=== PATIENT | female | born 1995 | race Caucasian/White ===

== ENCOUNTER → 2018-03-12 10:52 | Outpatient (CLI) | payer BC, SELFPAY ==
[2018-03-12 12:13] LABS: Cholesterol 159 mg/dL (140-199); HDL Cholesterol 73 mg/dL (40-60); LDL Cholesterol Calculated 72 mg/dL (<100); Triglycerides 68 mg/dL (35-150)
== END ==
PROVIDERS: PCP Family Medicine; Visit Provider Family Medicine
DX: Z82.3 Family history of stroke (principal)
CPT/HCPCS: 36415; 80061

== ENCOUNTER → 2019-07-18 13:28 | Outpatient (CLI) | payer BC, SELFPAY ==
[2019-07-18 20:24] LABS: Urine N gonorrhoeae NOT DETECTED
[2019-07-18 20:43] LABS: Urine Chlamydia NOT DETECTED
== END ==
PROVIDERS: Family Provider Family Medicine; PCP Family Medicine; Visit Provider Family Medicine
DX: Z11.3 Encounter for screening for infections with a predominantly sexual mode of transmission (principal)
CPT/HCPCS: 87491; 87591

== ENCOUNTER → 2020-03-10 15:09 | Outpatient (CLI) | payer BC, SELFPAY ==
[2020-03-10 18:57] LABS: RBC Urine None Seen (0-5/HPF)
[2020-03-10 19:14] LABS: Appearance Urine UA CLEAR; Bilirubin Urine UA NEGATIVE (NEGATIVE); Color Urine UA YELLOW; Glucose Urine UA NEGATIVE (Negative); Ketones Urine UA NEGATIVE (NEGATIVE); Leukocyte Esterase Urine UA TRACE (NEGATIVE); Nitrite Urine UA NEGATIVE (Negative); Occult Blood Urine UA NEGATIVE (Negative); Protein Urine UA NEGATIVE (Negative); Specific Gravity Urine UA 1.015 (1.000-1.035); Urobilinogen Urine UA 0.2 E.U./dL (0.2)
[2020-03-10 19:19] LABS: pH Urine UA 7.5 (4.5-8.0)
[2020-03-10 19:29] LABS: Amorphous Sediment Urine 1+; Bacteria Urine Many (>30); Culture Indicated Urine Specimen Cultured; Squamous Epithelial Cell Urine 0-1 /HPF (0-5/HPF); WBC Urine 30-100/HPF (0-5/HPF)
== END ==
PROVIDERS: Family Provider Family Medicine; PCP Family Medicine; Visit Provider Nurse Practitioner Family
DX: R30.0 Dysuria (principal)
CPT/HCPCS: 81001; 87077; 87086

== ENCOUNTER → 2023-04-02 15:09 | Outpatient (CLI) | payer OTHER, SELFPAY ==
[2023-04-02 17:43] LABS: Free T4, Direct Thyroxine 0.84 ng/dL (0.78-2.19)
[2023-04-02 17:57] LABS: Thyroid Stimulating Hormone 0.572 uIU/mL (0.47-4.68)
[2023-04-03 08:48] LABS: Triiodothyronine T3 Total 173 ng/dL (71-180)
[2023-04-03 18:15] LABS: Anti Thyroglobulin Antibody <1.0 IU/mL (0.0-0.9); Thyroid Peroxidase Antibodies <9 IU/mL (0-34)
== END ==
PROVIDERS: Family Provider Family Medicine; PCP Family Medicine; Referring Provider Family Medicine; Visit Provider Family Medicine
DX: E04.9 Nontoxic goiter, unspecified (principal)
CPT/HCPCS: 36415; 84439; 84443; 84480; 86376; 86800

== ENCOUNTER → 2023-04-27 12:25 | Outpatient (CLI) | payer OTHER, SELFPAY ==
--- NOTE | 2023-04-27 | PATH_ITS ---
Note [facility] Accession Number: [id number] TESTS RESULT FLAG UNITS REF RANGE LAB Clinician Provided Cytology Information No. of containers..02 Previously Prepared Cytology Slide 35 Unknown Storage/container code(s) Source: INFERIOR LEFT THYROI DIAGNOSIS: INFERIOR LEFT THYROI INCONCLUSIVE. [place] CATEGORY III. ATYPIA OF UNDETERMINED SIGNIFICANCE. CELLS WITH HURTHLE-OID FEATURES PRESENT, RARE CELLS WITH CYTOLOGIC ATYPIA, POSSIBLY CONSISTENT WITH MULTINODULAR GOITER. MOLECULAR STUDIES REQUESTED; RESULTS WILL BE REPORTED AN ADDENDUM. Pathologist ICD10: 01 R89.6, E04.2 Signed out by: Aide Valle MD, Pathologist NPI- [id number] Performed by: Dario Armenta, [employer] ([facility]) Gross description: 30 CC, PINK, CLEAR RECIEVED: IN CYTOLYT WITH 6 ALCOHOL FIXED AND 6 QUICK STAINED SLIDES ALSO 1 RNA VIAL WAS RECEIVED.VO /VDU 04/30/2023 0758 Local FLAG LEGEND: L-Low Normal,H-High Normal,LL-Alert Low,HH-Alert High <-Panic Low,>-Panic High,A-Abnormal,AA-Critical Abnormal Performed at: 01 =Z [facility] [address], [place] [address] Jose Manuel Brown MD, Performed at: 01 [facility] [address] [place] [address] [address], [place], [place] [id number] MD Jose Manuel Brown MD Phone: [phone]
--- NOTE | 2023-04-27 12:26 | DI.US.S_ITS ---
PROCEDURE: US FINE NEEDLE ASPIRATION INDICATIONS: INFERIOR LEFT THYROID NODULE TECHNIQUE: The indications, alternatives, benefits, risks, and complications of the procedure were explained to the patient. Written informed consent was obtained and placed in the chart. The area of interest was examined sonographically and a site was chosen for ultrasound guided percutaneous sampling. The skin was prepared and draped in the usual fashion, and anesthetized with 1% lidocaine infiltrated from the skin down to the lesion. Multiple passes were then performed, with contents emptied into an appropriate pathology specimen container. A bandage was applied to the area of access at completion of the study. COMPARISON: Outside Facility, RG, US THYROID, 04/11/2023, 13:32. FINDINGS: Location(s) of lesion(s) sampled: Inferior left thyroid [place]: 25 gauge hypodermic needles. Number of passes: 6 Medications: 1% lidocaine for local anaesthesia. Complications: None. IMPRESSION: Successful ultrasound-guided left thyroid nodule fine needle aspiration, with cytology results pending. Approved by: Rudolph Adamson M.D. on 04/27/2023 at 14:37
== END ==
PROVIDERS: Family Provider Family Medicine; PCP Family Medicine; Referring Provider Family Medicine; Visit Provider Family Medicine
DX: E04.2 Nontoxic multinodular goiter (principal)
CPT/HCPCS: 10005

== ENCOUNTER → 2024-02-29 10:10 | Outpatient (CLI) | payer OTHER, SELFPAY ==
[2024-02-29 11:32] LABS: Appearance Urine UA CLEAR; Bilirubin Urine UA NEGATIVE (NEGATIVE); Color Urine UA YELLOW; Glucose Urine UA NEGATIVE (Negative); Ketones Urine UA NEGATIVE (NEGATIVE); Leukocyte Esterase Urine UA NEGATIVE (NEGATIVE); Nitrite Urine UA NEGATIVE (Negative); Occult Blood Urine UA NEGATIVE (Negative); Protein Urine UA NEGATIVE (Negative); Urobilinogen Urine UA 0.2 E.U./dL (0.2)
[2024-02-29 11:42] LABS: Bacteria Urine Moderate (10-30); Culture Indicated Urine Specimen Cultured; RBC Urine None Seen (0-5/HPF); Squamous Epithelial Cell Urine 1-5 /HPF (0-5/HPF); Urine Volume 10mL (spun); WBC Urine None Seen (0-5/HPF)
== END ==
PROVIDERS: Family Provider Family Medicine; PCP Student in an Organized Health Care Education/Training Program; Referring Provider Obstetrics & Gynecology; Visit Provider Obstetrics & Gynecology
DX: R35.0 Frequency of micturition (principal)
CPT/HCPCS: 81001; 87086

== ENCOUNTER → 2024-04-07 08:34 | Outpatient (CLI) | payer OTHER, SELFPAY ==
[2024-04-07 10:03] LABS: Natera Collection Specimen Collected
[2024-04-07 10:11] LABS: Add Manual Diff / Slide Review NO; Basophils Absolute Auto 0 /uL (0-100); Basophils Percent Auto 0.5 % (0-2); Eosinophils Absolute Auto 100 /uL (0-450); Eosinophils Percent Auto 1.1 % (2-4); Hematocrit 36.3 % (36-46); Hemoglobin 12.8 g/dL (12.0-16.0); Lymphocytes Absolute Auto 1900 /uL (1100-4500); Lymphocytes Percent Auto 29.3 % (25-40); Mean Corpuscular HGB Conc 35.2 % (30-36); Mean Corpuscular Hemoglobin 28.7 PG (26-34); Mean Corpuscular Volume 81.6 fL (80-100); Monocytes Absolute Auto 500 /uL (0-900); Neutrophils Absolute Auto 4000 /uL (1500-7000); Neutrophils Percent Auto 62.1 % (50-75); Platelet Count 316 X10^3/uL (150-400); Red Blood Cell Count 4.45 X10^6/uL (4.0-5.2); Red Cell Distribution Width 13.6 % (11.6-14.8); White Blood Cell Count 6.4 X10^3/uL (4.5-11.0)
[2024-04-07 10:54] LABS: Free T4, Direct Thyroxine 0.81 ng/dL (0.78-2.19)
[2024-04-07 11:08] LABS: Thyroid Stimulating Hormone 0.196 uIU/mL (0.47-4.68)
[2024-04-07 15:09] LABS: Urine Chlamydia NOT DETECTED; Urine N gonorrhoeae NOT DETECTED
[2024-04-07 16:24] LABS: Hepatitis B Surface Antigen NEGATIVE s/c (NEGATIVE); Rubella Antibody IgG 10.9 IU/mL (>15)
[2024-04-07 16:29] LABS: HIV 1 & 2 Ab/Ag 4th Gen Combo NEGATIVE (NEGATIVE); Hep C Virus Ab w/Reflex Quant NEGATIVE s/c (NEGATIVE)
[2024-04-08 04:36] LABS: RPR Screen Non Reactive (Non Reactive)
[2024-04-08 12:10] LABS: Varicella IgG Antibody 205 index (Immune >165)
== END ==
PROVIDERS: Family Provider Family Medicine; PCP Student in an Organized Health Care Education/Training Program; Referring Provider Obstetrics & Gynecology; Visit Provider Obstetrics & Gynecology
DX: Z34.01 Encounter for supervision of normal first pregnancy, first trimester (principal); E04.1 Nontoxic single thyroid nodule; Z3A.10 10 weeks gestation of pregnancy; Z11.3 Encounter for screening for infections with a predominantly sexual mode of transmission; Z3A.08 8 weeks gestation of pregnancy
CPT/HCPCS: 36415; 80055; 84439; 84443; 86787; 86803; 86850; 86900; 86901; 87086; 87389; 87491; 87591

== ENCOUNTER → 2024-05-23 06:51 | Outpatient (CLI) | payer OTHER, SELFPAY ==
[2024-05-27 21:12] LABS: AFP Value 20.9 ng/mL (.); Gest Age on Col Date 16.6 weeks (.); Gestational Age Ultrasound (.); Insulin Dep Diabetes No (.); OSBR Risk 1IN 10000 (.); Results Report (.); Test Results *Screen Negative* (.)
== END ==
PROVIDERS: Family Provider Family Medicine; PCP Student in an Organized Health Care Education/Training Program; Referring Provider Obstetrics & Gynecology; Visit Provider Obstetrics & Gynecology
DX: Z34.02 Encounter for supervision of normal first pregnancy, second trimester (principal); Z3A.16 16 weeks gestation of pregnancy
CPT/HCPCS: 36415; 82105

== ENCOUNTER → 2024-06-18 06:51 | Outpatient (CLI) | payer OTHER, SELFPAY ==
--- NOTE | 2024-06-18 06:52 | DI.US.S_ITS ---
PROCEDURE: US OB >= 14 WEEKS FETUS INDICATIONS: 20 week anatomy OUTSIDE/PRIOR DATING DATA: Last menstrual period (LMP): 01/28/2024. LMP-based estimated date of delivery (DENISE): 11/13/2024. First dating scan (date and location): 03/26/2024. Estimated date of delivery (DEINSE) from first dating scan: 11/01/2024. The calculations are made using the clinical DENISE of 11/13/2024. TECHNIQUE: Real-time scanning was performed of the fetus, with image documentation and biometric measurements. COMPARISON: [facility], , OB <= 14 WEEKS FETUS, 03/26/2024, 15:10. FINDINGS: General: A single living intrauterine gestation is present. Presentation: Vertex. Placenta: Placental position is posterior , without previa. Amniotic fluid index: 17 cm, normal range is 5-24 cm. Single deepest vertical pocket is 5.8 cm. heart rate: 145 beats per minute. Maternal cervical canal: 3.5 cm long. Normal lower limit is 2.5 cm. biometrics: Biparietal diameter: 5.0 cm 21 weeks 1 day Head circumference: 18.8 cm 21 weeks 0 days Abdominal circumference: 16.2 cm 21 weeks 2 days Femur length: 3.4 cm 20 weeks 5 days Clinically estimated gestational age: 20 weeks 2 days Composite gestational age from present scan: 21 weeks 0 days Estimated weight and percentile: 393 g, 84th percentile Anatomic survey: Neuro: Ventricles are non-dilated at less than 10 mm. Cisterna magna is normal at 3-11 mm. Cerebellum is normal in size and morphology. Nuchal skin fold: Normal at less than 6 mm between 14-21 weeks gestational age. Face: Nose and lips, facial profile are normal. Spine: No evidence for spina bifida. Heart: 4-chambered heart is present, with normal ventricular outflow tracts. Diaphragm: Diaphragm is intact. Stomach: Left-sided stomach is present. Kidneys: No hydronephrosis. Normal is less than 5 mm in 2nd trimester, less than 7 mm in 3rd trimester. Cord: 3-vessel cord has orthotopic insertion. Bladder: Normal in size. Extremities: All 4 extremities identified. IMPRESSION: Single live intrauterine with gestational age today of 21 weeks 0 days. Anatomy is within normal limits. We strive to produce accurate, complete, and clear reports of imaging services. To assist us in improving patient care, this report was composed using standard report templates and voice recognition software. Therefore, it may contain abnormal punctuation, insertions and/or omissions. Occasional wrong-word or sound-alike substitutions may occur. Though we review the report and make efforts to correct it, we do recommend that the report be read carefully in proper context to recognize any text inaccuracies. Dictated by: Ana Lilia Harris M.D. on 06/18/2024 at 16:19 Approved by: Ana Lilia Harris M.D. on 06/18/2024 at 16:21
== END ==
LOC: US 06:51
PROVIDERS: Family Provider Family Medicine; PCP Student in an Organized Health Care Education/Training Program; Referring Provider Obstetrics & Gynecology; Visit Provider Obstetrics & Gynecology
DX: Z34.02 Encounter for supervision of normal first pregnancy, second trimester (principal); Z3A.21 21 weeks gestation of pregnancy
CPT/HCPCS: 76811

== ENCOUNTER 2024-06-21 13:13 | Emergency (ER) | payer OTHER, SELFPAY ==
[2024-06-21 13:15] VITALS: BP 122/73; PULSE 87; RESP 16; TEMP 36.6; O2SAT 97; BMI 34.5
[2024-06-21 13:30] VITALS: PULSE 87; O2SAT 97
--- NOTE | 2024-06-21 13:33 | EKG_ITS ---
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
--- NOTE | 2024-06-21 13:44 | ED_ITS ---
HPI - Arrhythmia/Palpitations General Chief Complaint: Arrhythmia/Palpitations Stated Complaint: migraine t-3, palpitations Time Seen by Provider: 06/21/24 13:28 Source: patient Mode of arrival: Ambulatory History of Present Illness HPI narrative: Patient is an otherwise healthy 29-year-old female he was a at approximately 20 weeks EGA he was here for evaluation of 3 days of a migraine headache and palpitations. She has a history of migraines. She normally would take Excedrin for her migraines which would help the symptoms however since she was she has only been taking Tylenol. Her last dose of Tylenol was earlier today. No fevers. States this feels like her prior headaches. Since the start of her she has had palpitations. They have been increasing over the past week or so and then significantly increased over the past 24 hours. Describes the palpitations as sudden onset. Lasting for seconds. No other associated symptoms to include lightheadedness or shortness of breath or chest pain. She contacted her OB provider who stated that this potentially could be normal in although the patient has had low iron in the past. She comes in the emergency department for her headache but mainly because of the palpitations. Related Data Home Medications Medication Instructions Recorded Confirmed vitamin-ferrous sulfate tab PO 03/10/24 06/18/24 27 mg iron-folic acid 0.8 mg tablet Previous Rx's Medication Instructions Recorded ondansetron 4 mg disintegrating 4 mg PO Q6H PRN for 05/07/24 tablet nausea/vomiting #20 tabs Allergies Allergy/AdvReac Type Severity Reaction Status Date / Time Penicillins Allergy Intermediate Rash Verified 06/21/24 13:27 Review of Systems Review of Systems ROS Unobtainable: All systems reviewed & are unremarkable except as noted in HPI and below Patient History Medical History Allergies (~2015) Environmental allergies Migraine without aura (~2021) Thyroid nodule (~2022) Simple physiological cyst of ovary (~2022) Surgical History (Updated 04/14/24 @ 20:59 by Brigida Skelton) Anesthesia Status post fine needle biopsy [place] teeth extracted (~2014) History of nasal septoplasty (~2018) Family History (Updated 03/10/24 @ 09:14 by Shoshana Deleon RN) Father Stroke PFO (patent foramen ovale) Grandfather Lung cancer Smoker Grandmother Non-Hodgkin lymphoma Social History marital status: number of children: 0 household members: spouse lives independently: Yes caregiver/support person: No housing: house pets and animals: Yes (cat and 2 dogs; manages litter box) education level: college occupational status: employed 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 travel history: over 6 months ago seatbelt use: always helmet use: Yes water heater temp set < 120 deg: Yes working smoke detector in home: Yes fire extinguisher in home: Yes carbon monox detector in home: Yes firearms in home: No do you feel safe at home: Yes Smoking Status: Never smoker second hand exposure: No alcohol intake: former substance use type: does not use during the past year weight has: increased > 10 lbs well-balanced diet: daily or most days daily servings fruits/ve-4 caffeine: Yes (AM cup coffee, stopped since becoming ) Type(s) of exercise: walking and other additional social history: Currently attending the (2018). Will be in final year this year. 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 Smoking Status: Never smoker Substance Use Type: does not use Exam Initial Vital Signs Initial Vital Signs: Vital Signs Temperature 97.8 F 06/21/24 13:15 Pulse Rate 87 06/21/24 13:15 Respiratory Rate 16 06/21/24 13:15 Blood Pressure 122/73 06/21/24 13:15 Pulse Oximetry 97 06/21/24 13:15 Oxygen Delivery Method Room Air 06/21/24 13:15 Const General: cooperative, comfortable and No ill appearing HENMT Head: normal to inspection Resp Effort & Inspection: normal respiratory effort Cardio Rate: regular rate GI Inspection: normal to inspection Skin General: no rashes or lesions noted Neuro General: patient alert, patient awake and moves all extremities Course Orders Ordered: ED Orders 06/21/24 13:29 EKG-12 Lead Stat 06/21/24 13:45 Basic Metabolic Panel Stat Complete Blood Count AUTO DIFF Stat Discontinued Medications Sodium Chloride (Normal Saline 0.9%) 1,000 mls @ 1,000 mls/hr IV BOLUS ONE Stop: 06/21/24 14:44 Last Admin: 06/21/24 14:09 Dose: 1,000 mls/hr Acetaminophen (Ofirmev) 1,000 mg in 100 mls @ 400 mls/hr IV NOW ONE Stop: 06/21/24 14:15 Last Infusion: 06/21/24 14:39 Dose: Infused Vital Signs Vital signs: Vital Signs - 8 hr 06/21/24 13:15 06/21/24 13:30 06/21/24 14:01 Temperature 97.8 F Pulse Rate 87 87 83 Respiratory Rate 16 Blood Pressure 122/73 Pulse Oximetry 97 97 99 Oxygen Delivery Method Room Air 06/21/24 14:02 06/21/24 14:02 06/21/24 14:30 Temperature Pulse Rate 78 80 Respiratory Rate 22 21 Blood Pressure 117/60 Pulse Oximetry 98 97 Oxygen Delivery Method Room Air Room Air 06/21/24 14:30 Temperature Pulse Rate Respiratory Rate Blood Pressure 110/54 L Pulse Oximetry Oxygen Delivery Method MDM - Arrhythmia/Palpitations Lab Data 06/21/24 14:03 06/21/24 14:03 Labs: Lab Results 06/21/24 Range/Units 14:03 WBC 10.8 (4.5-11.0) X10^3/uL RBC 4.32 (4.0-5.2) X10^6/uL Hgb 12.3 (12.0-16.0) g/dL Hct 35.2 L (36-46) % MCV 81.5 (80-100) fL MCH 28.4 (26-34) PG MCHC 34.8 (30-36) % RDW 13.7 (11.6-14.8) % Plt Count 338 (150-400) X10^3/uL Neut % (Auto) 72.8 (50-75) % Lymph % (Auto) 19.4 L (25-40) % [place] % (Auto) 6.3 (3-14) % Eos % (Auto) 1.1 L (2-4) % Baso % (Auto) 0.4 (0-2) % Neut # (Auto) 7900 H (5476-8965) /uL Lymph # (Auto) 2100 (4421-5729) /uL [place] # (Auto) 700 (0-900) /uL Eos # (Auto) 100 (0-450) /uL Baso # (Auto) 0 (0-100) /uL Sodium 134 L (137-145) mmol/L Potassium 3.9 (3.4-5.1) mmol/L Chloride 105 (98-107) mmol/L Carbon Dioxide 24 (22-32) mmol/L BUN 9 (7-17) mg/dL Creatinine 0.59 (0.52-1.04) mg/dL Estimated GFR > 60 (>60) mL/min BUN/Creatinine Ratio 15.3 (6-22) Glucose 92 (70-100) mg/dL Calcium 8.8 (8.4-10.2) mg/dL ECG Data Attestation: I personally reviewed and interpreted this ECG as follows: Interpretation: Sinus rhythm Ventricular rate 82 [place] Normal QRS Normal QTC No ST T wave changes MDM Narrative Medical decision making narrative: She was having PACs that are consistent with the symptoms that she was having. Her labs unremarkable. Offered treatment for her headache however she stated she would just rather take Tylenol. After IV Tylenol and fluids she states her headache has improved. She was not having chest pain or shortness of breath. Plan will be to have her follow-up with her OB provider for a follow-up. She was given return precautions. She expressed understanding and agreement with plan. Discharge Plan Departure Patient Disposition: Home Clinical Impression: Palpitations, Headache Instructions: DI for Palpitations Activity Restrictions/Additional Instructions: Your labs today are unremarkable. You are having frequent premature atrial contractions. Recommend that you contact your OB provider for follow-up to discuss any potential medications. Return to the emergency department for new symptoms. Prescriptions: No Action ondansetron 4 mg tablet,disintegrating 4 mg PO Q6H PRN (Reason: for nausea/vomiting) Qty: 20 2RF vit-ferrous sulfat-FA 27 mg iron- 0.8 mg tablet PO Referrals: Heena Jacobsen DO [Primary Care Provider] - Stand Alone Forms: Patient Portal/API
[2024-06-21 14:01] VITALS: PULSE 83; O2SAT 99
[2024-06-21 14:02] VITALS: BP 117/60; PULSE 78; RESP 22; O2SAT 98
[2024-06-21] MEDS: ACETAMINOPHEN IV 1,000 MG/100 ML VIAL 400 MG IV (14:09)
[2024-06-21] MEDS: SODIUM CHLORIDE 0.9% 1,000 ML 1000 ML IV (14:09)
[2024-06-21 14:11] LABS: Add Manual Diff / Slide Review NO; Basophils Absolute Auto 0 /uL (0-100); Basophils Percent Auto 0.4 % (0-2); Eosinophils Absolute Auto 100 /uL (0-450); Eosinophils Percent Auto 1.1 % (2-4); Hematocrit 35.2 % (36-46); Hemoglobin 12.3 g/dL (12.0-16.0); Lymphocytes Absolute Auto 2100 /uL (1100-4500); Lymphocytes Percent Auto 19.4 % (25-40); Mean Corpuscular HGB Conc 34.8 % (30-36); Mean Corpuscular Hemoglobin 28.4 PG (26-34); Mean Corpuscular Volume 81.5 fL (80-100); Monocytes Absolute Auto 700 /uL (0-900); Monocytes Percent Auto 6.3 % (3-14); Neutrophils Absolute Auto 7900 /uL (1500-7000); Neutrophils Percent Auto 72.8 % (50-75); Platelet Count 338 X10^3/uL (150-400); Red Blood Cell Count 4.32 X10^6/uL (4.0-5.2); Red Cell Distribution Width 13.7 % (11.6-14.8); White Blood Cell Count 10.8 X10^3/uL (4.5-11.0)
[2024-06-21 14:28] LABS: BUN Creatinine Ratio 15.3 (6-22); Blood Urea Nitrogen 9 mg/dL (7-17); Calcium 8.8 mg/dL (8.4-10.2); Carbon Dioxide 24 mmol/L (22-32); Chloride 105 mmol/L (98-107); Estimated Glomerular Filt Rate > 60 mL/min (>60); Glucose 92 mg/dL (70-100); HEMOLYSIS < 15 (0-50); Potassium 3.9 mmol/L (3.4-5.1); Sodium 134 mmol/L (137-145)
[2024-06-21 14:30] VITALS: BP 110/54; PULSE 80; RESP 21; O2SAT 97
== END 2024-06-21 15:03 | disposition home or self-care (01) ==
PROVIDERS: Emergency Provider Emergency Medicine; Family Provider Family Medicine; PCP Student in an Organized Health Care Education/Training Program
DX: R00.2 Palpitations (principal); R51.9 Headache, unspecified; Z3A.20 20 weeks gestation of pregnancy
CPT/HCPCS: 36415; 80048; 85025; 93005; 96365; 99284; J0136

== ENCOUNTER → 2024-06-30 13:38 | Outpatient (CLI) | payer OTHER, SELFPAY | LOC: CAR 13:39 | PROVIDERS: Family Provider Family Medicine; PCP Student in an Organized Health Care Education/Training Program; Referring Provider Obstetrics & Gynecology; Visit Provider Obstetrics & Gynecology | DX: Z34.90 Encounter for supervision of normal pregnancy, unspecified, unspecified trimester (principal); R00.2 Palpitations | CPT/HCPCS: 93242 ==

== ENCOUNTER → 2024-07-25 08:33 | Outpatient (CLI) | payer OTHER, SELFPAY ==
[2024-07-25 10:29] LABS: Hematocrit 34.8 % (36-46); Hemoglobin 11.9 g/dL (12.0-16.0)
[2024-07-25 10:30] LABS: GTT (PREG) 1 Hour PP 50gm Dose 171 mg/dL (76-139); HEMOLYSIS < 15 (0-50); Iron 42 ug/dL (37-170)
[2024-07-25 10:40] LABS: Percent Iron Saturation 9 % (15-50); Total Iron Binding Capacity 473 ug/dL (265-497); Transferrin 389 mg/dL (206-381)
== END ==
PROVIDERS: Family Provider Family Medicine; PCP Student in an Organized Health Care Education/Training Program; Referring Provider Obstetrics & Gynecology; Visit Provider Obstetrics & Gynecology
DX: Z34.02 Encounter for supervision of normal first pregnancy, second trimester (principal); R51.9 Headache, unspecified; Z3A.26 26 weeks gestation of pregnancy
CPT/HCPCS: 36415; 82950; 83540; 83550; 85014; 85018

== ENCOUNTER → 2024-07-28 07:59 | Outpatient (CLI) | payer OTHER, SELFPAY ==
[2024-07-28 09:37] LABS: Glucose Fasting Gestational 89 mg/dL (76-95)
[2024-07-28 10:49] LABS: Glucose 1 Hour Gest 187 mg/dL (76-180)
[2024-07-28 11:34] LABS: Glucose Tol Interp,Gestational INTERPRETATION
[2024-07-28 12:20] LABS: Glucose 2 Hour Gest 136 mg/dL (76-155)
[2024-07-28 12:34] LABS: Glucose 3 Hour Gest 78 mg/dL (76-140)
== END ==
PROVIDERS: Family Provider Family Medicine; PCP Student in an Organized Health Care Education/Training Program; Referring Provider Specialist; Visit Provider Specialist
DX: Z34.90 Encounter for supervision of normal pregnancy, unspecified, unspecified trimester (principal); R73.09 Other abnormal glucose
CPT/HCPCS: 36415; 82951; 82952

== ENCOUNTER → 2024-08-13 10:38 | Outpatient (CLI) | payer OTHER, SELFPAY | PROVIDERS: Family Provider Family Medicine; PCP Student in an Organized Health Care Education/Training Program; Visit Provider Obstetrics & Gynecology | DX: N39.0 Urinary tract infection, site not specified (principal); R82.998 Other abnormal findings in urine | CPT/HCPCS: 87086 ==

== ENCOUNTER 2024-09-18 10:05 | Outpatient (CLI) | payer OTHER, SELFPAY | END 2024-09-18 12:22 | disposition home or self-care (01) | LOC: LABOR 10:27 → OB 09-23 08:31 | PROVIDERS: Family Provider Family Medicine; PCP Student in an Organized Health Care Education/Training Program; Referring Provider Obstetrics & Gynecology; Visit Provider Obstetrics & Gynecology | DX: O60.03 Preterm labor without delivery, third trimester (principal); O13.3 Gestational [pregnancy-induced] hypertension without significant proteinuria, third trimester; Z3A.33 33 weeks gestation of pregnancy | CPT/HCPCS: 59025; G0378; G0379 ==

== ENCOUNTER 2024-09-20 13:14 | Outpatient (CLI) | payer OTHER, SELFPAY ==
[2024-09-20 14:16] LABS: Appearance Urine UA CLEAR; Bilirubin Urine UA NEGATIVE (NEGATIVE); Color Urine UA YELLOW; Glucose Urine UA NEGATIVE (Negative); Ketones Urine UA NEGATIVE (NEGATIVE); Leukocyte Esterase Urine UA 1+ (NEGATIVE); Nitrite Urine UA NEGATIVE (Negative); Occult Blood Urine UA NEGATIVE (Negative); Protein Urine UA NEGATIVE (Negative); Urobilinogen Urine UA 0.2 E.U./dL (0.2)
[2024-09-20 14:23] LABS: Urine Volume 10mL (spun)
[2024-09-20 14:24] LABS: Bacteria Urine Many (>30); Culture Indicated Urine Specimen Cultured; RBC Urine None Seen (0-5/HPF); Squamous Epithelial Cell Urine 1-5 /HPF (0-5/HPF); WBC Urine 1-5/HPF (0-5/HPF)
[2024-09-20] MEDS: hydrOXYzine HCL 25 MG TABLET PO (14:24)
--- NOTE | 2024-09-20 14:33 | P.TNLD_ITS ---
Visit Information Visit Information Date of evaluation: 09/20/24 Primary OB Provider: Kasey Cochran On-call OB Provider: Stephanie Lopez Reason for Evaluation: Yes other Comments/Additional reasons for admission: This is a 29 yo G1 now 33w5d here with increased urinary leaking. She has hx of leaking this but seems worse over past few days. No bleeding, no change in discharge, no vaginal discomfort. She does have mild cramping. [facility] Medical History Allergies (~2015) Environmental allergies Migraine without aura (~2021) Thyroid nodule (~2022) Simple physiological cyst of ovary (~2022) Surgical History (Updated 04/14/24 @ 20:59 by Brigida Skelton) Anesthesia Status post fine needle biopsy [place] teeth extracted (~2014) History of nasal septoplasty (~2018) Family History (Updated 03/10/24 @ 09:14 by Shoshana Deleon RN) Father Stroke PFO (patent foramen ovale) Grandfather Lung cancer Smoker Grandmother Non-Hodgkin lymphoma Social History marital status: number of children: 0 household members: spouse lives independently: Yes caregiver/support person: No housing: house pets and animals: Yes (cat and 2 dogs; manages litter box) education level: college occupational status: employed 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 travel history: over 6 months ago seatbelt use: always helmet use: Yes water heater temp set < 120 deg: Yes working smoke detector in home: Yes fire extinguisher in home: Yes carbon monox detector in home: Yes firearms in home: No do you feel safe at home: Yes Smoking Status: Never smoker second hand exposure: No alcohol intake: former substance use type: does not use during the past year weight has: increased > 10 lbs well-balanced diet: daily or most days daily servings fruits/ve-4 caffeine: Yes (AM cup coffee, stopped since becoming ) Type(s) of exercise: walking and other additional social history: Currently attending the (2018). Will be in final year this year. 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 Objective Labs Labs: Laboratory Results - last 24 hr 09/20/24 14:05 Urine Color Yellow Urine Appearance Clear Urine pH 6.0 Ur Specific [place] 1.010 Urine Protein Negative Urine Glucose (UA) Negative Urine Ketones Negative Urine Occult Blood Negative Urine Nitrate Negative Urine Bilirubin Negative Urine Urobilinogen 0.2 Ur Leukocyte Esterase 1+ H Urine RBC None seen Urine WBC 1-5/hpf Ur Squamous Epith Cells 1-5 /hpf Urine Bacteria Many (>30) H Urine Yeast 0-1/hpf Ur Culture Indicated? Specimen cultured Vol Urine Centrifuged 10ml (spun) Evaluation Evaluation Baseline heart rate: 145 Variability: Average (6-10) monitor accelerations: Present Monitor Decelerations: Absent Contraction Frequency (minutes): 5 Uterine Contraction Intensity: Mild Category of Tracing: Reactive Status: Category l Non-invasive Membranes Rupture Test: negative Diagnosis, Plan/Disposition Plan/Disposition Plan: 29 yo G1 at 33w5d with increased urinary leaking. UA with leuks and bacteria. Will send for culture and treat UTI. Allergic to penicillin, nitrofurantoin given in L&D and sent to pharmacy. Return precautions given as nitrofurantoin would not treat pyelonephritis. Wet mount pending. Mild cramping/contractions improved with PO fluid intake and 25 mg hydroxyzine. Deferred SVE. Recommend FU with primary OB Sunday/Sunday of next week. OB Disposition: home
[2024-09-20] MEDS: NITROFURANTOIN ER 100 MG CAPSULE PO (14:50)
[2024-09-20 16:02] LABS: Fetal Fibronectin Negative
== END 2024-09-20 14:55 | disposition home or self-care (01) ==
LOC: LABOR 14:37 → OB 09-23 08:31
PROVIDERS: Student in an Organized Health Care Education/Training Program; Family Provider Family Medicine; PCP Student in an Organized Health Care Education/Training Program; Referring Provider Obstetrics & Gynecology; Visit Provider Obstetrics & Gynecology
DX: O26.893 Other specified pregnancy related conditions, third trimester (principal); R32 Unspecified urinary incontinence; Z3A.33 33 weeks gestation of pregnancy
CPT/HCPCS: 59025; 81001; 82731; 84112; 87086; 87210; G0378; A9270; G0379

== ENCOUNTER → 2024-10-10 10:18 | Outpatient (CLI) | payer OTHER, SELFPAY ==
[2024-10-11 09:04] LABS: Strep Grp B PCR NEG for Grp B Strep
== END ==
PROVIDERS: Family Provider Family Medicine; PCP Student in an Organized Health Care Education/Training Program; Visit Provider Specialist
DX: Z34.03 Encounter for supervision of normal first pregnancy, third trimester (principal); Z3A.36 36 weeks gestation of pregnancy
CPT/HCPCS: 87653

== ENCOUNTER 2024-10-27 07:14 | Observation (INO) | payer OTHER, SELFPAY ==
--- NOTE | 2024-10-27 11:17 | P.TNLD_ITS ---
Visit Information Visit Information Date of evaluation: 10/27/24 Primary OB Provider: Kayla Plummer Reason for Evaluation: Yes rule out labor Vital Signs Vital Signs: Blood pressure 128/71, pulse of 100, temperature 36.3? [facility] Medical History Allergies (~2015) Environmental allergies Migraine without aura (~2021) Thyroid nodule (~2022) Simple physiological cyst of ovary (~2022) Surgical History (Updated 04/14/24 @ 20:59 by Brigida Skelton) Anesthesia Status post fine needle biopsy [place] teeth extracted (~2014) History of nasal septoplasty (~2018) Family History (Updated 03/10/24 @ 09:14 by Shoshana Deleon RN) Father Stroke PFO (patent foramen ovale) Grandfather Lung cancer Smoker Grandmother Non-Hodgkin lymphoma Social History marital status: number of children: 0 household members: spouse lives independently: Yes caregiver/support person: No housing: house pets and animals: Yes (cat and 2 dogs; manages litter box) education level: college occupational status: employed 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 travel history: over 6 months ago seatbelt use: always helmet use: Yes water heater temp set < 120 deg: Yes working smoke detector in home: Yes fire extinguisher in home: Yes carbon monox detector in home: Yes firearms in home: No do you feel safe at home: Yes Smoking Status: Never smoker second hand exposure: No alcohol intake: former substance use type: does not use during the past year weight has: increased > 10 lbs well-balanced diet: daily or most days daily servings fruits/ve-4 caffeine: Yes (AM cup coffee, stopped since becoming ) Type(s) of exercise: walking and other additional social history: Currently attending the (2018). Will be in final year this year. 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 Review of Systems Review of Systems Narrative: Patient with regular 2-5 minute contractions. No leakage of fluid. Good movement. Evaluation Evaluation Baseline heart rate: 130 Variability: Moderate (11-25) monitor accelerations: Present Monitor Decelerations: Absent Contraction Frequency (minutes): 5 Uterine Contraction Intensity: Moderate Cervical dilation (cm): 2 Cervical effacement (%): 70 station: -1 Comments: Patient was monitored for several hours and had no change in her cervix Diagnosis, Plan/Disposition Final Diagnosis (1) False labor after 37 completed weeks of gestation: Status: Acute (2) 39 weeks gestation of : Status: Acute Plan/Disposition Plan: Home with normal labor precautions. OB Disposition: home
== END 2024-10-27 10:15 | disposition home or self-care (01) ==
PROVIDERS: Admitting Provider Student in an Organized Health Care Education/Training Program; Family Provider Family Medicine; PCP Student in an Organized Health Care Education/Training Program; Referring Provider Student in an Organized Health Care Education/Training Program; Visit Provider Student in an Organized Health Care Education/Training Program
DX: O47.1 False labor at or after 37 completed weeks of gestation (principal); Z3A.39 39 weeks gestation of pregnancy
CPT/HCPCS: 59025; G0378; G0379

== ENCOUNTER 2024-10-27 18:01 | Inpatient (IN) | payer OTHER, SELFPAY ==
[2024-10-27 19:01] LABS: Add Manual Diff / Slide Review NO; Basophils Absolute Auto 100 /uL (0-100); Basophils Percent Auto 0.5 % (0-2); Eosinophils Absolute Auto 100 /uL (0-450); Eosinophils Percent Auto 0.8 % (2-4); Hematocrit 38.6 % (36-46); Lymphocytes Absolute Auto 2000 /uL (1100-4500); Lymphocytes Percent Auto 19.3 % (25-40); Mean Corpuscular HGB Conc 33.8 % (30-36); Mean Corpuscular Hemoglobin 26.8 PG (26-34); Mean Corpuscular Volume 79.5 fL (80-100); Monocytes Absolute Auto 700 /uL (0-900); Neutrophils Absolute Auto 7500 /uL (1500-7000); Neutrophils Percent Auto 72.4 % (50-75); Platelet Count 359 X10^3/uL (150-400); Red Blood Cell Count 4.85 X10^6/uL (4.0-5.2); Red Cell Distribution Width 15.6 % (11.6-14.8); White Blood Cell Count 10.4 X10^3/uL (4.5-11.0)
[2024-10-27 19:19] VITALS: BP 129/72
--- NOTE | 2024-10-27 20:25 | P.HPOB_ITS ---
OB HPI Date/Time Date of admission: 10/27/24 Date Patient Seen: 10/27/24 Time Patient Seen: 20:25 History of Present Condition Chief complaint: labor DENISE Calculator 2 Estimated Delivery Date Method Current WG Current Estimate 11/03/24 LMP (Certain) 39w 0d Other Estimates 11/04/24 Ultrasound #1 38w 6d Estimated Gestational Age (weeks): 39 : 1 Para: 0 Narrative: 29-year-old at 39 weeks by dates admitted in active labor. Patient denies headaches, scotomata, epigastric pain. Good movement. No leakage of fluid. No vaginal bleeding. Regular painful contractions. care: good care, initiated at week # (8), number of visits (12) and pounds weight gain (43) Dating criteria OB: LMP confirmed by 1st trimester US Ultrasounds: normal mid trimester US Obstetrical complications: none Medical complications OB: none External History : 1 Para: 0 Estimated Date of Delivery: 11/03/24 Preadmission Labs Last OB Lab Results: 2 Blood Type B Positive 04/07/24 09:03 Antibody Screen Negative 04/07/24 09:03 Hct 38.6 % (36-46) 10/27/24 18:47 Hgb 13.0 g/dL (12.0-16.0) 10/27/24 18:47 Hep Bs Antigen Negative s/c (NEGATIVE) 04/07/24 09:03 Hepatitis C Antibody Negative s/c (NEGATIVE) 04/07/24 09:03 Rubella Antibody 10.9 IU/mL (>15) L 04/07/24 09:03 VZV IgG Antibody 205 index (Immune >165) 04/07/24 09:03 Glucose 1 Hr 50 gm 171 mg/dL (76-139) H 07/25/24 09:57 Group B Strep (PCR) Neg for grp b strep 10/10/24 10:18 Glucose Tolerance Testing: Fasting (89), 1 hr (187), 2 hr (136) and 3 hr (78) -: Chlamydia screen: negative and Urine: negative Genetic Screens: Cell-free DNA: Normal (Low risk male) and Alpha-fetoprotein: Normal External Labs Blood type OB HPI: B (+) positive -: Antibody screen: negative, HBsAG: negative, HIV: negative, GBS status: negative and Urine: negative -: Rubella: not immune and Varicella: immune HCAB: negative Evaluation Evaluation Baseline heart rate: 135 Variability: Moderate (11-25) monitor accelerations: Present Monitor Decelerations: Absent Contraction Frequency (minutes): 4 Uterine Contraction Intensity: Moderate Category of Tracing: Reactive Status: Category l Dilation (cm): 4 Effacement (%): 80 station: -1 Position of cervix: mid Consistency: soft [facility] Medical History Allergies (~2015) Environmental allergies Migraine without aura (~2021) Thyroid nodule (~2022) Simple physiological cyst of ovary (~2022) Surgical History (Updated 04/14/24 @ 20:59 by Brigida Skelton) Anesthesia Status post fine needle biopsy [place] teeth extracted (~2014) History of nasal septoplasty (~2018) Family History (Updated 03/10/24 @ 09:14 by Shoshana Deleon RN) Father Stroke PFO (patent foramen ovale) Grandfather Lung cancer Smoker Grandmother Non-Hodgkin lymphoma Social History marital status: number of children: 0 household members: spouse lives independently: Yes caregiver/support person: No housing: house pets and animals: Yes (cat and 2 dogs; manages litter box) education level: college occupational status: employed 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 travel history: over 6 months ago seatbelt use: always helmet use: Yes water heater temp set < 120 deg: Yes working smoke detector in home: Yes fire extinguisher in home: Yes carbon monox detector in home: Yes firearms in home: No do you feel safe at home: Yes Smoking Status: Never smoker second hand exposure: No alcohol intake: former substance use type: does not use during the past year weight has: increased > 10 lbs well-balanced diet: daily or most days daily servings fruits/ve-4 caffeine: Yes (AM cup coffee, stopped since becoming ) Type(s) of exercise: walking and other additional social history: Currently attending the (2018). Will be in final year this year. 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 Meds Home Medications and Allergies Home Medications Medication Instructions Recorded Confirmed Type vitamin-ferrous sulfate See Rx Instructions .Route .COMPLEX 03/10/24 10/27/24 History 27 mg iron-folic acid 0.8 mg tablet ondansetron 4 mg disintegrating 4 mg PO Q6H PRN for 05/07/24 10/27/24 Rx tablet nausea/vomiting #20 tabs RSVPreF3 antigen-AS01E 0.5 ml IM ONCE #1 ea 09/10/24 10/27/24 Rx adjuvant(PF) 120 mcg/0.5 mL IM suspension, kit hydroxyzine HCl 25 mg tablet 25 mg PO BID PRN itching #20 tabs 09/10/24 10/27/24 Rx nitrofurantoin macrocrystal 100 mg 100 mg PO BID #14 caps 09/20/24 10/27/24 Rx capsule Allergies Allergy/AdvReac Type Severity Reaction Status Date / Time Penicillins Allergy Intermediate Rash Verified 10/24/24 08:14 Review of Systems Review of Systems ROS: Yes All systems reviewed with the patient and are negative except as otherwise documented OB Exam Vital signs Blood Pressure: 129/72 Pulse Rate: 87 Temperature: 36.7 F Narrative Exam Narrative: HEENT exam within normal limits. Lungs are clear to auscultation percussion. Heart is regular rate and rhythm no S3-S4 murmurs. Abdomen is gravid. Fetus is vertex. Extremities with trace edema and nontender. Objective Labs 10/27/24 18:47 Labs: Laboratory Results - last 24 hr 10/27/24 18:47 WBC 10.4 RBC 4.85 Hgb 13.0 Hct 38.6 MCV 79.5 L MCH 26.8 MCHC 33.8 RDW 15.6 H Plt Count 359 Neut % (Auto) 72.4 Lymph % (Auto) 19.3 L Jerome % (Auto) 7.0 Eos % (Auto) 0.8 L Baso % (Auto) 0.5 Neut # (Auto) 7500 H Lymph # (Auto) 2000 Jerome # (Auto) 700 Eos # (Auto) 100 Baso # (Auto) 100 Assessment and Plan Assessment and Plan Assessment and Plan narrative: 39 week gestation early labor. Anticipate vaginal delivery. Time-Based Coding :: [TOTAL MINUTES] spent with patient and on the chart (including review of chart, obtaining history, exam, reviewing outside data, placing orders, documenting exam and treatment plan, and counseling patient) on [DATE].
[2024-10-27 20:30] VITALS: BP 129/72; PULSE 87; TEMP 2.6; TEMP 36.7
[2024-10-27] MEDS: LACTATED RINGERS 1,000 ML 100 ML IV (23:00)
--- NOTE | 2024-10-28 00:28 | PM.AN.REGBLK ---
Regional Block Pre-procedure Procedure: Continuous Lumbar Epidural for L&D Attending OB provider: Kayla Plummer PMH/ROS narrative: G1PO, active labor, ruptured. ROS negative with exception of anemia with this PSH/Anesthesia history narrative: none Exam narrative: Mall 2, good airway ASA Class: II Labs: Hct 38.6 % (36-46) 10/27/24 18:47 Plt Count 359 X10^3/uL (150-400) 10/27/24 18:47 Medications: Current Medications Generic Name Dose Route Start Last Admin Trade Name Freq PRN Reason Stop Dose Admin Carboprost Tromethamine 250 mcg 10/27/24 18:51 Carboprost 250 Mcg/Ml Ampul IM Q90M PRN Bleeding Oxytocin/Lactated Ringer's 30 unit in 500 mls @ 200 mls/hr 10/27/24 18:51 Oxytocin Premix IV CONT PRN Bleeding Protocol Tranexamic Acid 1,000 mg/ 100 mls @ 600 mls/hr 10/27/24 18:51 Sodium Chloride IV NOW PRN Bleeding Lactated Ringer's 1,000 mls @ 100 mls/hr 10/27/24 19:00 10/27/24 23:00 Lactated Ringers IV 10/28/24 04:59 100 mls/hr CONT MAXWELL Administration Lidocaine HCl 20 ml 10/27/24 18:51 Lidocaine 1% 20 Ml INJ INTRA-OP PRN Post Delivery Methylergonovine Maleate 0.2 mg 10/27/24 18:51 Methylergonovine 0.2 Mg Tablet PO Q6HR PRN Heavy Bleeding Methylergonovine Maleate 0.2 mg 10/27/24 18:51 Methylergonovine 0.2 Mg/Ml Vial IM NOW PRN Bleeding Mineral Oil 30 ml 10/27/24 18:51 Mineral Oil 30 Ml Udc TOP PRN PRN Version Misoprostol 800 mcg 10/27/24 18:51 Misoprostol 200 Mcg Tablet DC NOW PRN Bleeding Misoprostol 400 mcg 10/27/24 18:51 Misoprostol 200 Mcg Tablet SL NOW PRN Bleeding Naloxone HCl 0.2 mg 10/27/24 18:51 Naloxone 0.4 Mg/Ml Vial IV Q2MIN PRN Opiate Reversal Oxytocin 10 unit 10/27/24 18:51 Oxytocin 10 Unit/Ml Vial IM NOW PRN Bleeding Allergies: Allergies Allergy/AdvReac Type Severity Reaction Status Date / Time Penicillins Allergy Intermediate Rash Verified 10/24/24 08:14 Procedure Insertion date: 10/27/24 Insertion time: 23:07 Prep/Local: 1% lidocaine (chloraprep skin prep, dry x 3 min) Interspace: L4-5 Patient position: sitting Needle: 17 gauge Tuohy Loss of resistance with: saline DEANDRE at (cm): 8 Catheter placed at SKIN (cm): 16 Catheter in SPACE (cm): 8 Sensory level: T10 Insertion: No CSF, No Blood, No Paresthesia with insertion, No Paresthesia with injection and No Test dose reaction Initial Medications TEST DOSE time: : BOLUS DOSE time: 23:35 BOLUS DOSE (mL): 8 BOLUS DOSE med: other (pump solution) Infusion Initial rate (mL/hr): 10 Post-procedure Anesthesia date START: 10/27/24 Anesthesia time START: 23:07 Anesthesia date END: 10/28/24 Anesthesia time END: 01:36 Post-procedure Anesthesia Assessment: Yes CV function: HR/BP stable, Yes Resp function: RR/sat/airway adequate, Yes Post-op hydration adequate, Yes Pain control adequate, Yes Nausea & vomiting absent, Yes Temperature > 36 C, Yes Mental status appropriate and Yes Anesthesia complications
[2024-10-28] MEDS: OXYTOCIN PREMIX 30 UNIT/500 ML PLAST..BAG 350 UNIT IV (01:22)
--- NOTE | 2024-10-28 01:35 | P.PCNOB_ITS ---
Labor & Delivery Delivery date: 10/28/24 Delivery Time: 01:36 Intrapartal Events: None Cervical ripening method: none Induction method: none Delivery monitor: external FHT and external uterine Route of delivery: L&D Laceration Description: Perineal - 1st Degree (No suture required) Estimated blood loss (mL): 100 Anesthesia Type: Spinal Narrative: Patient arrived on Labor and delivery in active labor. heart tones category 1 to category 2 throughout labor. She received an epidural catheter for pain control. She had a spontaneous vaginal delivery over an intact perineum. The viable male was delivered in the LUIS MANUEL position. After delivery of the head the baby was delivered and placed on maternal abdomen. After the cord stopped pulsating the cord was clamped, cut, and cord bloods obtained. The placenta delivered spontaneously, intact, with 3 vessels. There were no cervical or vaginal tears. A small first-degree perineal tear in the midline, posterior, that did not require suturing. Estimated blood loss 100 cc. Both and mother doing well. [place] Baby 1: gender: Male Presentation: vertex Position: Right Occiput Anterior Placenta delivery description: Spontaneous Cord Vessel Description: 3 Vessels score (1 min): 8 score (5 min): 9 Plan for aftercare: Routine care
[2024-10-28] MEDS: IBUPROFEN 600 MG TABLET PO ×3 (04:46→17:06)
[2024-10-28] MEDS: WITCH HAZEL/GLYCERIN PADS 1 EACH TOP (04:47)
[2024-10-28] MEDS: DERMOPLAST SPRAY 20% 60 ML 1 SPRAY TOP (04:47)
[2024-10-28] MEDS: LANOLIN OINT 7 GM 1 APPLIC TOP (04:53)
[2024-10-28] MEDS: ACETAMINOPHEN 325 MG TABLET 650 MG PO ×2 (11:12→17:06)
[2024-10-29] MEDS: IBUPROFEN 600 MG TABLET PO ×2 (01:00→07:13)
[2024-10-29] MEDS: ACETAMINOPHEN 325 MG TABLET 650 MG PO ×2 (01:00→07:13)
[2024-10-29 06:43] LABS: Hematocrit 33.4 % (36-46); Hemoglobin 11.1 g/dL (12.0-16.0)
--- NOTE | 2024-10-29 08:14 | PM.OBDS.1 ---
Discharge Providers Provider Date of admission: 10/27/24 18:01 Discharge Date: 10/29/24 Primary care physician: Heena Jacobsen DO Consults: 10/27/24 18:51 Consult to Anesthesiology Urgent Comment: Consulting Provider: Anesthesiologist Reason for consultation: Epidural 10/29/24 01:32 Consult to Call Center Consultant Routine Comment: Discharge provider: Kayla Plummer MD Summary Hospital Course Date Patient Seen: 10/29/24 Time Patient Seen: 08:15 Diagnoses: Spontaneous vaginal delivery Hospital Course: Patient arrived on Labor and delivery in active labor. She received an epidural catheter for pain control. heart tones category 1 to category 2 throughout labor. She had a spontaneous vaginal delivery over an intact perineum. She had a first-degree perineal tear that did not require suturing. She is breast-feeding without difficulty. Bleeding is mild. She is urinating and ambulating well. She is tolerating regular diet. Peripartum Data Delivery Method: Natural Vaginal Laceration Description: Perineal - 1st Degree Procedures: Epidural catheter, spontaneous vaginal delivery complications: none 1: Gender: Male Disposition of : home Discharge Diagnosis (1) Vaginal delivery: Status: Acute Status at Discharge Cognitive/behavioral status at discharge: oriented Functional status at discharge: independent ambulation Overall status at discharge: patient is progressing back to baseline Time Spent with Patient Time attestation: Total time spent providing and/or coordinating discharge services: Time spent: Less than 30 minutes Objective Labs 10/29/24 06:34 Labs: Laboratory Results - last 24 hr 10/29/24 06:34 Hgb 11.1 L Hct 33.4 L Exam Vital Signs (past 8 hours): 1 elevated blood pressure at 135/90, otherwise normal blood pressures : 113/63, pulse of 89, temperature 98? Narrative Exam Narrative: Abdomen is soft, nontender. Uterus is firm, at U, nontender. Mild lochia. Extremities with +1 edema and nontender Discharge Plan Discharge Plan Patient Disposition: Home Discharge orders & Medications Prescriptions: Discontinued ondansetron 4 mg tablet,disintegrating 4 mg PO Q6H PRN (Reason: for nausea/vomiting) Qty: 20 2RF nitrofurantoin macrocrystal 100 mg capsule 100 mg PO BID Qty: 14 0RF Rx Instructions: must administer with a meal/food vit-ferrous sulfat-FA 27 mg iron- 0.8 mg tablet See Rx Instructions .ROUTE .COMPLEX Rx Instructions: per MD order RSVPreF3 antigen-AS01E (PF) 120 mcg/0.5 mL suspension for reconstitution 0.5 ml IM ONCE Qty: 1 0RF hydroxyzine HCl 25 mg tablet 25 mg PO BID PRN (Reason: itching) Qty: 20 3RF Follow up/Referrals: Kasey Cochran MD [Physician] - 6 Weeks ( exam) Heena Jacobsen DO [Primary Care Provider] - Diet/Activity/Treatments Diet: Regular Activity: Nothing in vagina for 6 weeks Skin/Wound/Dressing Care Report to your healthcare provider any signs of infection, such as:: chills, fever and increased pain Visit Report/Discharge Packet Stand Alone Forms: Discharge: Care, Patient Portal/API, Stroke Signs & Symptoms Discharge Data Primary Care Provider: Heena Jacobsen
[2024-10-29] MEDS: PRENATAL VIT,CALC/IRON/FOLIC 1 TABLET 1 TAB PO (08:45)
[2024-10-29] MEDS: DOCUSATE 100 MG CAPSULE PO (08:45)
[2024-10-29 14:19] VITALS: BP 132/75; PULSE 97; RESP 15; TEMP 36.6
[2024-10-29] MEDS: MEASLES,MUMPS,RUBELLA VACC/PF 0.5 ML VIAL SUBCUT (14:22)
== END 2024-10-29 14:35 | disposition home or self-care (01) | DRG 807 ==
PROVIDERS: Admitting Provider Specialist; Family Provider Family Medicine; PCP Student in an Organized Health Care Education/Training Program; Referring Provider Specialist; Visit Provider Specialist
DX: O80 Encounter for full-term uncomplicated delivery (principal); Z37.0 Single live birth; Z3A.39 39 weeks gestation of pregnancy; Z28.39 Other underimmunization status; Z23 Encounter for immunization; O47.1 False labor at or after 37 completed weeks of gestation
CPT/HCPCS: 36415; 59025; 59050; 85014; 85018; 85025; 86850; 86900; 86901; G0378; G0379; J2590

== ENCOUNTER → 2024-11-06 11:41 | Outpatient (CLI) | payer OTHER, SELFPAY ==
[2024-11-06 13:03] LABS: Appearance Urine UA CLEAR; Bilirubin Urine UA NEGATIVE (NEGATIVE); Color Urine UA YELLOW; Glucose Urine UA NEGATIVE (Negative); Ketones Urine UA NEGATIVE (NEGATIVE); Leukocyte Esterase Urine UA 1+ (NEGATIVE); Nitrite Urine UA NEGATIVE (Negative); Occult Blood Urine UA 3+ (Negative); Protein Urine UA NEGATIVE (Negative); Specific Gravity Urine UA 1.015 (1.000-1.035); Urobilinogen Urine UA 0.2 E.U./dL (0.2)
[2024-11-06 13:23] LABS: Bacteria Urine Few (2-10); Culture Indicated Urine Specimen Cultured; RBC Urine 1-5/HPF (0-5/HPF); Squamous Epithelial Cell Urine 1-5 /HPF (0-5/HPF); Urine Volume 10mL (spun); WBC Urine 1-5/HPF (0-5/HPF)
== END ==
LOC: LAB 11:41
PROVIDERS: Family Provider Family Medicine; PCP Student in an Organized Health Care Education/Training Program; Referring Provider Obstetrics & Gynecology; Visit Provider Obstetrics & Gynecology
DX: R30.0 Dysuria (principal)
CPT/HCPCS: 81001; 87086

== ENCOUNTER → 2025-01-13 10:12 | Outpatient (CLI) | payer OTHER, SELFPAY ==
[2025-01-14 13:09] LABS: Candida species Negative (Negative); Gardnerella vaginalis Negative (Negative); Trichomoas vaginalis Negative (Negative)
== END ==
LOC: LAB 10:14
PROVIDERS: Family Provider Family Medicine; PCP Student in an Organized Health Care Education/Training Program; Visit Provider Student in an Organized Health Care Education/Training Program
DX: N89.8 Other specified noninflammatory disorders of vagina (principal)
CPT/HCPCS: 87480; 87510; 87660